=== PATIENT | male | born 1990 | race Hispanic/Latino ===

== ENCOUNTER 2020-07-12 22:41 | Emergency (ER) | payer SELFPAY ==
[~2020-07-12] VITALS: Ht 175.3 cm; Wt 77.1 kg
[2020-07-12] MEDS ORDERED: KETOROLAC TROMETHAMINE 30 MG/ML VIAL IV STA (23:28)
[2020-07-12] MEDS ORDERED: KETOROLAC TROMETHAMINE 30 MG/ML VIAL ONE (23:57)
[2020-07-13] MEDS ORDERED: NAPROSYN500 MG PO (00:27)
[2020-07-13] MEDS ORDERED: ONDANSETRON ODT4 MG PO (00:27)
[2020-07-13] MEDS ORDERED: DILANTIN100 MG PO (00:27)
[2020-07-13 00:42] VITALS: BP 126/80
== END 2020-07-13 00:42 | disposition home or self-care (01) ==
LOC: FSED 23:32
DX: R51.9 Headache, unspecified (principal); R11.10 Vomiting, unspecified; G40.909 Epilepsy, unspecified, not intractable, without status epilepticus
CPT/HCPCS: 70450; 80053; 85025; 96374; 99284; J1885

== ENCOUNTER 2020-10-31 01:02 | Emergency (ER) | payer SELFPAY ==
[~2020-10-31] VITALS: Ht 175.3 cm; Wt 67.1 kg
[~2020-10-31 01:02] MED LIST: DILANTIN100 MG PO; NAPROSYN500 MG PO; ONDANSETRON ODT4 MG PO
[2020-10-31] MEDS ORDERED: IBUPROFEN IB200 MG PO (01:12)
[2020-10-31] MEDS ORDERED: ACETAMINOPHEN500 MG PO (01:12)
[2020-10-31 01:28] VITALS: BP 134/86
[2020-10-31] MEDS ORDERED: IBUPROFEN 200 MG TAB PO ONE (01:30)
[2020-10-31] MEDS ORDERED: IBUPROFEN 400 MG TAB ONE (01:35)
== END 2020-10-31 01:28 | disposition home or self-care (01) ==
LOC: FSED 01:24
DX: M54.5 Low back pain (principal); G57.01 Lesion of sciatic nerve, right lower limb; X50.1XXA Overexertion from prolonged static or awkward postures, initial encounter; Y92.008 Other place in unspecified non-institutional (private) residence as the place of occurrence of the external cause; G40.909 Epilepsy, unspecified, not intractable, without status epilepticus
CPT/HCPCS: 99282

== ENCOUNTER 2021-05-17 22:11 | Emergency (ER) | payer SELFPAY ==
[~2021-05-17] VITALS: Ht 175.3 cm; Wt 73.9 kg
[~2021-05-17 22:11] MED LIST changes: +ACETAMINOPHEN500 MG PO; +IBUPROFEN IB200 MG PO
[2021-05-17 22:46] VITALS: BP 119/78
== END 2021-05-17 22:49 | disposition left against medical advice (07) ==
LOC: FSED 22:16
DX: R53.1 Weakness (principal); F14.90 Cocaine use, unspecified, uncomplicated; G40.909 Epilepsy, unspecified, not intractable, without status epilepticus
CPT/HCPCS: 80307; 81003; 99282

== ENCOUNTER 2022-04-05 13:51 | Emergency (ER) | payer OTHER ==
[~2022-04-05] VITALS: Ht 175.3 cm; Wt 74.6 kg
[2022-04-05] MEDS ORDERED: ONDANSETRON HCL INJ 2MG/ML 2ML 2 MG/ML VIAL IV STA (14:28)
[2022-04-05] MEDS ORDERED: SODIUM CHLORIDE 0.9% 1000ML 1,000 ML IV SCH (14:30)
[2022-04-05] MEDS ORDERED: ONDANSETRON HCL INJ 2MG/ML 2ML 2 MG/ML VIAL ONE (14:47)
[2022-04-05] MEDS ORDERED: SODIUM CHLORIDE 0.9% 1000ML 1,000 ML ONE (14:48)
[2022-04-05] MEDS ORDERED: KETOROLAC TROMETHAMINE 30 MG/ML VIAL IV STA (15:18)
[2022-04-05] MEDS ORDERED: CYCLOBENZAPRINE HCL 10 MG TAB PO ONE (15:30)
[2022-04-05] MEDS ORDERED: CYCLOBENZAPRINE HCL 10 MG TAB ONE (15:31)
[2022-04-05] MEDS ORDERED: KETOROLAC TROMETHAMINE 30 MG/ML VIAL ONE (15:31)
[2022-04-05] MEDS ORDERED: HYDROCODONE/APAP 5MG-325MG TAB PO ONE (16:30)
[2022-04-05] MEDS ORDERED: ONDANSETRON ODT4 MG PO (16:32)
[2022-04-05] MEDS ORDERED: NAPROSYN500 MG PO (16:33)
[2022-04-05] MEDS ORDERED: CYCLOBENZAPRINE10 MG PO (16:34)
[2022-04-05] MEDS ORDERED: HYDROCODON-ACE1 EA11 PO (16:36)
[2022-04-05] MEDS ORDERED: HYDROCODONE/APAP 5MG-325MG TAB ONE (16:56)
== END 2022-04-05 16:52 | disposition home or self-care (01) ==
LOC: FSED 13:56
DX: S00.83XA Contusion of other part of head, initial encounter (principal); R55 Syncope and collapse; M54.2 Cervicalgia; R51.9 Headache, unspecified; W01.0XXA Fall on same level from slipping, tripping and stumbling without subsequent striking against object, initial encounter; Y99.0 Civilian activity done for income or pay; G40.909 Epilepsy, unspecified, not intractable, without status epilepticus
CPT/HCPCS: 70450; 72125; 80053; 81003; 85025; 96374; 96375; 99284; J1885; J2405; J7030

== ENCOUNTER 2022-04-27 12:08 | Emergency (ER) | payer SELFPAY ==
[~2022-04-27] VITALS: Ht 175.3 cm; Wt 77.1 kg
[~2022-04-27 12:08] MED LIST changes: +CYCLOBENZAPRINE10 MG PO; +HYDROCODON-ACE1 EA11 PO
[2022-04-27] MEDS ORDERED: KETOROLAC TROMETHAMINE 30 MG/ML VIAL ONE (13:01)
[2022-04-27] MEDS ORDERED: SODIUM CHLORIDE 0.9% 1000ML 1,000 ML IV SCH (13:30)
[2022-04-27] MEDS ORDERED: DEXAMETHASONE SOD PHOS 10 MG/1 ML VIAL IV ONE (13:30)
[2022-04-27] MEDS ORDERED: DIPHENHYDRAMINE HCL INJ 50 MG/ML VIAL IV ONE (13:30)
[2022-04-27] MEDS ORDERED: METOCLOPRAMIDE HCL 10 MG/2ML VIAL IV ONE (13:30)
[2022-04-27] MEDS ORDERED: KETOROLAC TROMETHAMINE 30 MG/ML VIAL IV STA (13:41)
[2022-04-27] MEDS ORDERED: DEXAMETHASONE SOD PHOS INJ 4 MG/ML SDV ONE (13:46)
[2022-04-27] MEDS ORDERED: SODIUM CHLORIDE 0.9% 1000ML 1,000 ML ONE (13:47)
[2022-04-27] MEDS ORDERED: METOCLOPRAMIDE HCL 10 MG/2ML VIAL ONE (13:47)
[2022-04-27] MEDS ORDERED: DIPHENHYDRAMINE HCL INJ 50 MG/ML VIAL ONE (13:47)
[2022-04-27] MEDS ORDERED: DILANTIN100 MG PO (13:59)
[2022-04-27] MEDS ORDERED: FIORICET 50-301 EACH PO (14:01)
[2022-04-27 14:30] VITALS: BP 138/72
== END 2022-04-27 14:30 | disposition home or self-care (01) ==
LOC: FSED 12:20
DX: R20.2 Paresthesia of skin (principal); R51.9 Headache, unspecified; G40.909 Epilepsy, unspecified, not intractable, without status epilepticus
CPT/HCPCS: 70450; 80053; 85025; 99284; J1100; J1200; J1885; J2765; J7030